=== PATIENT | female | born 1950 | race Caucasian/White ===

== ENCOUNTER 2020-01-06 08:38 | Day surgery (SDC) | payer MEDICARE, OTHER ==
[~2020-01-06] VITALS: Ht 144.8 cm; Wt 73.0 kg
[~2020-01-06 08:38] MED LIST: ACETAMINOPHEN325 M1 PO; ALEVE220 MG PO; CALCITRATE200 MG PO; CEPHALEXIN500 MG PO; LORATADINE10 MG PO; PROAIR HFA8.5 GM INH; SIMVASTATIN40 MG PO; VITAMIN D250000 UNIT PO; VITAMIN D31000 UNI1 PO
--- NOTE | 2020-01-06 09:33 | NUR ---
2737 pt is deaf according to hearing care practitioner. caregiver gave info.
--- NOTE | 2020-01-06 10:35 | NUR ---
01/06/20 1035 Sheets,Abi 1018 PT ARRIVED TO PACU ASLEEP, VSS. PT LAYING ON LEFT SIDE AND SMALL AMOUNT OF SNORING NOTED. PT WAKES TO TACTILE STIMULI AND DENIES PAIN AND IS REORIENTED TO PACU.
--- NOTE | 2020-01-06 18:16 | OR ---
[facility] [address], [place] [address] Signed DATE OF OPERATION: 01/06/2020 SURGEON: Pasha Hinds MD PREOPERATIVE DIAGNOSES: 1. Positive Cologuard test. 2. Diverticulosis. 3. Internal hemorrhoids. 4. External hemorrhoids. POSTOPERATIVE DIAGNOSES: 1. Moderate sigmoid diverticulosis. 2. Jyamydm-cl-ufhlflzo internal and external hemorrhoids. PROCEDURE: Colonoscopy without biopsy. ESTIMATED BLOOD LOSS: None. INDICATIONS: Melina is a 69-year-old lady with developmental delay. She came to us in May 2015 for screening colonoscopy. She had moderate sigmoid diverticulosis along with a single internal hemorrhoid column and external hemorrhoids. She had actually done well with Versed and fentanyl at that time. More recently, her Cologuard test came back positive. Consequently, she was asked to see me for followup colonoscopy. She has no lower GI complaints. No family history of colon cancer or polyps to her knowledge. I gave Melina and her caregiver a booklet in the office on colonoscopy. We reviewed the nature of the test along with the risks including, but not limited to gas bloating, crampy abdominal pain, bleeding, perforation requiring surgery, and missed diagnosis. She understands the need for IV conscious sedation. They had expressed understanding and wished to proceed. PROCEDURE NOTE: Melina was taken into our endoscopy suite and placed in the left lateral decubitus position. She was given IV sedation with 3 mg of Versed and 100 mcg of fentanyl. A digital rectal exam was performed once again and she has small circumferential somewhat beefy external hemorrhoids. She has good sphincter tone. No masses. The adult colonoscope was introduced and advanced all around into the cecum under direct visualization of camera without difficulty. Her prep was good. We could easily see the Electronically Signed By: PASHA HINDS MD 01/06/20 1816 PATIENT NAME: MELINA PENNINGTON OPERATIVE REPORT DATE OF : 50 REPORT #: [id number] PHYSICIAN: PASHA HINDS MD PCP: STONEY SMART MD REPORT IS CONFIDENTIAL AND NOT TO BE RELEASED WITHOUT AUTHORIZATION [facility] [address], [place] [address] Signed appendiceal orifice and the ileocecal valve. We took pictures throughout for photodocumentation. The scope was slowly withdrawn. Once again, she has moderate sigmoid diverticulosis. Rectum was unremarkable. Upon retroflexion of the scope, again, she has a single dominant internal hemorrhoid. It is minimal to moderate in size. No evidence of any bleeding currently. After this, the gas was suctioned out and the colonoscope removed. Melina tolerated the procedure quite well. RECOMMENDATIONS: Melina can follow up in 10 years for repeat colonoscopy so long as her health holds up. Pasha Hinds MD ALB/MODL /[id number] cc: MD Pasha Lao MD Copies: PASHA HINDS MD ~ Electronically Signed By: PASHA HINDS MD 01/06/20 1816 PATIENT NAME: MELINA PENNINGTON OPERATIVE REPORT DATE OF : 50 REPORT #: [id number] PHYSICIAN: PASHA HINDS MD PCP: STONEY SMART MD REPORT IS CONFIDENTIAL AND NOT TO BE RELEASED WITHOUT AUTHORIZATION
== END 2020-01-06 11:10 | disposition home or self-care (01) ==
LOC: OPS 08:38 → DS 08:51 → OPS 09:45
PROVIDERS: Colon & Rectal Surgery
PROC: 0DJD8ZZ Inspection of Lower Intestinal Tract, Via Natural or Artificial Opening Endoscopic (ICD-10-PCS; principal; 2020-01-06 09:45)
DX: K64.8 Other hemorrhoids (principal); K64.4 Residual hemorrhoidal skin tags; K57.30 Diverticulosis of large intestine without perforation or abscess without bleeding; E78.5 Hyperlipidemia, unspecified; M85.80 Other specified disorders of bone density and structure, unspecified site; M17.0 Bilateral primary osteoarthritis of knee; Z79.899 Other long term (current) drug therapy; Z98.890 Other specified postprocedural states; Z88.1 Allergy status to other antibiotic agents; Z88.2 Allergy status to sulfonamides; Z91.048 Other nonmedicinal substance allergy status
CPT/HCPCS: 99153; G0500; J2250; J3010; J7121

== ENCOUNTER 2021-01-22 13:10 | Emergency (ER) | payer MEDICARE, OTHER ==
[~2021-01-22] VITALS: Ht 144.8 cm; Wt 72.6 kg
[2021-01-22] MEDS ORDERED: TERBINAFINE HC250 MG PO (13:28)
[2021-01-22] MEDS ORDERED: VITAMIN D350 MCG PO (13:28)
--- NOTE | 2021-01-22 13:28 | NUR ---
12 lead EKG completed and given to ED RN for physician review at 1320.
[2021-01-22] MEDS ORDERED: ALENDRONATE SOD70 MG PO (13:29)
[2021-01-22] MEDS ORDERED: OMEPRAZOLE20 MG PO (16:01)
--- NOTE | 2021-01-23 20:07 | EKG ---
[facility] [address] [facility] [place], [place] [address] Signed Normal sinus rhythm Left axis deviation Inferior infarct , age undetermined Cannot rule out Anterior infarct , age undetermined Abnormal ECG No previous ECGs available Confirmed by BAYLEE ARCEO DO ([id number]) on 01/23/2021 8:07:10 PM Electronically Signed By: BAYLEE ARCEO DO 01/23/212006 PATIENT NAME: ADITIBEARNICA MADISON Electrocardiogram DATE OF : 50 PHYSICIAN: BAYLEE ARCEO DO REPORT #: [id number] REPORT IS CONFIDENTIAL AND NOT TO BE RELEASED WITHOUT AUTHORIZATION
== END 2021-01-22 16:21 | disposition home or self-care (01) ==
LOC: ED 13:10
DX: R07.9 Chest pain, unspecified (principal); K21.9 Gastro-esophageal reflux disease without esophagitis; Z88.2 Allergy status to sulfonamides; Z88.1 Allergy status to other antibiotic agents; Z79.899 Other long term (current) drug therapy
CPT/HCPCS: 80053; 83690; 83735; 84484; 85025; 93005; 93010; 99285-25